=== PATIENT | female | born 1980 | race Caucasian/White ===

== ENCOUNTER → 2020-11-03 11:46 | Outpatient (BNVA) | payer SELFPAY | PROVIDERS: Visit Provider Emergency Medicine | DX: M79.641 Pain in right hand (principal); M25.531 Pain in right wrist | CPT/HCPCS: 73110; 73130 ==

== ENCOUNTER → 2023-09-23 09:30 | Outpatient (BNVA) | payer OTHER, SELFPAY | PROVIDERS: Visit Provider Psychiatry & Neurology Psychiatry | DX: F33.1 Major depressive disorder, recurrent, moderate (principal); F41.1 Generalized anxiety disorder; Z79.899 Other long term (current) drug therapy; F15.20 Other stimulant dependence, uncomplicated; F10.21 Alcohol dependence, in remission; Z65.3 Problems related to other legal circumstances; F32.9 Major depressive disorder, single episode, unspecified | CPT/HCPCS: 80053; 80061; 83036; 84443; 85025 ==

== ENCOUNTER → 2023-11-24 13:20 | Outpatient (BNVA) | payer MEDICAID, SELFPAY | PROVIDERS: Visit Provider Nurse Practitioner | DX: Z20.5 Contact with and (suspected) exposure to viral hepatitis (principal); L40.9 Psoriasis, unspecified | CPT/HCPCS: 86705; 86706; 86709; 86803; 87340 ==

== ENCOUNTER → 2023-12-06 15:23 | Outpatient (BNVA) | payer MEDICAID, SELFPAY | PROVIDERS: PCP Nurse Practitioner; Visit Provider Nurse Practitioner Family | DX: J02.9 Acute pharyngitis, unspecified (principal); J02.0 Streptococcal pharyngitis | CPT/HCPCS: 87880 ==

== ENCOUNTER → 2024-06-12 16:13 | Outpatient (BNVA) | payer MEDICAID, SELFPAY | PROVIDERS: PCP Nurse Practitioner; Visit Provider Nurse Practitioner | DX: R68.89 Other general symptoms and signs (principal) | CPT/HCPCS: 87400; 87426 ==